=== PATIENT | male | born 1960 | race Caucasian/White ===

== ENCOUNTER 2016-11-09 14:05 | Emergency (ER) | payer OTHER ==
[2016-11-09 14:26] VITALS: BP 107/65; PULSE 70; RESP 16; TEMP 98.2; O2SAT 94
[2016-11-09] MEDS ORDERED: SULFAMETHOX/TMP 800/160 MG 1 TAB PO ONE (15:10)
[2016-11-09] MEDS ORDERED: CEPHALEXIN 500 MG CAP PO ONE (15:10)
--- NOTE | 2016-11-09 15:14 | EDPHY ---
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 It is just above the knee. He noticed a small pimple there 3 days ago and drained it. He thought that maybe it was a spider bite. It is continued to become more erythematous and painful. He has no difficulty walking. It is not appear to involve the joint. He has not had a fever or systemic illness. REVIEW OF SYSTEMS: Constitutional: denies: chills, fever, recent illness, recent injury EENTM: denies: blurred vision, double vision, nose congestion Respiratory: denies: cough, shortness of breath Cardiac: denies: chest pain, irregular heart rate, lightheadedness, palpitations Gastrointestinal/Abdominal: denies: abdominal pain, diarrhea, nausea, vomiting, blood streaked stools Genitourinary: denies: dysuria, frequency, hematuria, pain Musculoskeletal: See HPI Skin: denies: lesions, rash, jaundice, bruising Neurological: denies: headache, numbness, paresthesia, tingling, dizziness, weakness Hematologic/Lymphatic: denies: blood clots, easy bleeding, easy bruising Immunologic/allergic: denies: HIV/AIDS, transplant EXAM: GENERAL: Well-appearing, well-nourished and in no acute distress. HEAD: Atraumatic, normocephalic. EYES: Pupils equal round and reactive to light, extraocular movements intact, sclera anicteric, conjunctiva are normal. ENT: TMs normal, nares patent, oropharynx clear without exudates. Moist mucous membranes. NECK: Normal range of motion, supple without lymphadenopathy or JVD. LUNGS: Breath sounds clear to auscultation bilaterally and equal. No wheezes rales or rhonchi. HEART: Regular rate and rhythm without murmurs, rubs or gallops. ABDOMEN: Soft, nontender, normoactive bowel sounds. No guarding, no rebound. No masses appreciated. BACK: No CVA tenderness, no spinal tenderness, step-offs or deformities EXTREMITIES: Cellulitic erythematous area to left leg distal quadriceps region. Does not appear to involve the knee or knee joint. There is a small abscess region that is previously been drained by the patient at home. Currently no purulent discharge or fluctuance. NEUROLOGICAL: Cranial nerves II through XII grossly intact. Normal speech, normal gait. 5/5 strength, normal movement in all extremities, normal sensation PSYCH: Normal mood, normal affect. SKIN: Warm, dry, normal turgor, no visible rashes or lesions. Source: Patient Exam Limitations: No limitations - Personal History Current Tetanus Diphtheria and Acellular Pertussis (TDAP): Yes Tetanus Vaccine Date: < 10 YERARS - Medical/Surgical History Hx Asthma: No Hx Chronic Respiratory Disease: No Hx Diabetes: No Hx Cardiac Disease: No Hx Renal Disease: No Hx Cirrhosis: No Hx Alcoholism: No Hx HIV/AIDS: No Hx Splenectomy or Spleen Trauma: No Other PMH: rectal polyp/cancerous - Family History Significant Family History: No pertinent family hx - Social History Smoking Status: Former smoker Alcohol Use: Sober Drug Use: None Constitutional: Initial Vital Signs Temperature (C) 36.8 C 11/09/16 14:23 Heart Rate 70 11/09/16 14:23 Respiratory Rate 16 11/09/16 14:23 Blood Pressure 107/65 11/09/16 14:23 O2 Sat (%) 94 11/09/16 14:23 O2 Delivery Mode Room Air Allergies/Adverse Reactions: No Known Allergies Allergy (Unverified 11/09/16 14:26) Home Medications: Medication Instructions Recorded Cephalexin [Keflex] 500 mg PO TID #21 cap 11/09/16 Sulfamethox/Tmp 800/160 mg 1 tab PO BID #14 tab 11/09/16 [Bactrim Ds] Medical Decision Making ED Course/Re-evaluation: The patient has cellulitis. This may have been an abscess that is already been drained as well. I will start him on dual therapy. The patient understands and agrees with this plan. I instructed him to return if his symptoms are not better within 48 hours. Or if he develops fevers or signs of systemic infection. The the patient understands and agrees with this plan. Differential Diagnosis: Partial list of the Differential diagnosis considered include but were not limited to; cellulitis, abscess and although unlikely based on the history and physical exam, I also considered septic joint, arthritis, gout, sepsis. I discussed these differential diagnoses and the plan with the patient as well as the usual and expected course. The patient understands that the diagnosis is provisional and that in medicine we are not always correct and that further workup is often warranted. Usual and customary warnings were given. All of the patient's questions were answered. The patient was instructed to return to the emergency department should the symptoms at all worsen or return, otherwise to followup with the physician as we discussed. - Data Points Medications Given: Discontinued Medications Cephalexin HCl (Keflex) 500 mg PO EDNOW ONE PRN Reason: Protocol Stop: 11/09/16 15:11 Last Admin: 11/09/16 15:27 Dose: 500 mg Trimethoprim/Sulfamethoxazole (Bactrim Ds) 1 ea PO EDNOW ONE PRN Reason: Protocol Stop: 11/09/16 15:11 Last Admin: 11/09/16 15:27 Dose: 1 ea Departure - Departure Disposition: Home, Routine, Self-Care Clinical Impression: Cellulitis of left leg Condition: Fair Instructions: Cellulitis (ED) Referrals: Wendy Aguero MD [Medical Doctor] - As per Instructions Prescriptions: Cephalexin [Keflex] 500 mg PO TID #21 cap Sulfamethox/Tmp 800/160 mg [Bactrim Ds] 1 tab PO BID #14 tab
== END 2016-11-09 15:41 | disposition home or self-care (01) ==
DX: L03.116 Cellulitis of left lower limb (principal); Z87.891 Personal history of nicotine dependence